=== PATIENT | female | born 1960 | race Caucasian/White ===

== ENCOUNTER 2018-12-10 11:44 | Emergency (ER) | payer BC ==
[2018-12-10] MEDS ORDERED: KETOROLAC TROMETHAMINE INJ 30 MG/ML VIAL IM ONE (11:56)
--- NOTE | 2018-12-10 12:46 | CT ---
EXAM DESCRIPTION: Head CLINICAL HISTORY: new headache rt frontal x24 hrs COMPARISON: None TECHNIQUE: Noncontrast transaxial CT images of the head are obtained from base to vertex. This exam was performed according to our departmental dose-optimization program, which includes automated exposure control, adjustment of the mA and/or kV according to patient size and/or use of iterative reconstruction technique. FINDINGS: A mixed cystic and solid mass in the right cerebral hemisphere may arise from the right lateral ventricle extending into the right posterior temporal to parietal region. The solid component is mildly increased attenuation compared to the brain parenchyma. The lesion measures approximately 4 cm AP by 3.5 cm transverse by 3.7 cm cranial caudal. No significant mass effect or surrounding vasogenic edema is appreciated. No ventricular dilatation. The visualized bone windows show no depressed skull fracture or significant abnormality. The visualized paranasal sinuses and mastoid air cells are clear. IMPRESSION: 1. Mass in the right cerebral hemisphere measures 4.0 x 3.7 x 3.5 cm involving the right lateral ventricle is partly cystic and solid. Differential includes primary neoplastic process of the brain such as glioblastoma extending into the right lateral ventricle versus primary lesion of the choroid plexus extending into the brain parenchyma. Recommend further evaluation with pre and postcontrast MRI for better characterization of this lesion. Electronically signed by: Kodi Aponte MD 12/10/2018 12:44 PM CDT
[2018-12-10 12:48] VITALS: TEMP 96.8
[2018-12-10] MEDS ORDERED: predniSONE 20 MG TAB PO ONE (13:02)
[2018-12-10] MEDS ORDERED: HYDROcodone 7.5MG/APAP 325MG 1 EA TAB PO ONE (13:02)
--- NOTE | 2018-12-10 13:05 | ED.PDOC ---
History of Present Illness - General Chief Complaint: Headache Stated Complaint: pressure to right side of head Time Seen by Provider: 12/10/18 11:47 Source: patient Exam Limitations: no limitations - History of Present Illness Initial Comments: the patient is a 58-year-old female presenting to the emergency room secondary to a headache a little more on the right side than the left that started yesterday afternoon when she was walking around [facility]. The patient felt a little bit dizzy. She feels like there is increased pressure in her head. No blood thinners. No history of any cancers. No focal neurological changes. No vision changes. No syncope. No chest pain or shortness of breath. No incontinence. No gait instability. No confusion. No new neck pain. She does have chronic neck issues. Timing/Duration: 24 hours Severity: mild Improving Factors: nothing Worsening Factors: nothing Associated Symptoms: headaches Allergies/Adverse Reactions: Allergies NO KNOWN ALLERGY Allergy (Verified 12/10/18 11:52) Home Medications: Ambulatory Orders Tramadol HCl 50 mg PO Q8HR PRN #20 tab 12/10/18 predniSONE [Prednisone] 20 mg PO DAILY #3 tab 12/10/18 Review of Systems - Review of Systems Constitutional: States: malaise EENTM: States: no symptoms reported Respiratory: States: no symptoms reported Cardiology: States: no symptoms reported Gastrointestinal/Abdominal: States: no symptoms reported Genitourinary: States: no symptoms reported Musculoskeletal: States: no symptoms reported Skin: States: no symptoms reported Neurological: States: see HPI Endocrine: States: no symptoms reported All other Systems: No Change from Baseline Past Medical History (General) - Patient Medical History Hx Stroke: No Hx Asthma: No Hx of COPD: No Hx Cardiac Disorders: No Hx Thyroid Disease: No Hx Diabetes: No Hx Gastroesophageal Reflux: No Hx Renal Disease: No Surgical History: Hysterectomy, other - Vaccination History Hx Tetanus, Diphtheria Vaccination: No Hx Influenza Vaccination: No Hx Pneumococcal Vaccination: No Family Medical History - Family History Mother Family History: Unknown Physical Exam - Physical Exam General Appearance: Alert, Comfortable, No apparent distress Eye Exam: bilateral normal Ears, Nose, Throat: hearing grossly normal, normal ENT inspection Neck: full range of motion Respiratory: lungs clear, normal breath sounds, no respiratory distress, no accessory muscle use Cardiovascular/Chest: normal peripheral pulses, regular rate, rhythm, no edema Peripheral Pulses: radial,right: 2+, radial,left: 2+, dorsalis pedis,right: 2+, dorsalis pedis,left: 2+ Gastrointestinal/Abdominal: non tender, soft Rectal Exam: deferred Back Exam: no CVA tenderness, no vertebral tenderness Extremity: non-tender, normal inspection, no pedal edema, normal capillary refill 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 Head CT was performed as this is a fairly new symptom for her. CT was done without contrast showing an approximately 4 cm mass extending off of the right lateral ventricular wall. It is partly cystic and partially solid and structure. Further evaluation is recommended. No evidence of any hydrocephalus, mass effect or adjacent significant edema. No evidence of overt hemorrhage. The patient will be sent with the disc of the images and report. The patient is from [place] and is going to go back there to have this worked up as soon as possible. Obviously if she develops any new neurological changes then she needs to be seen at whatever facility is closest. It is uncertain at this time exactly what this structure is and therefore how long it has been there, it is not possible at this time to tell how fast it is growing, if it is growing at all. The patient is going to be placed on 3 days of low-dose oral prednisone. Obviously as soon as possible an additional workup, including an mri, needs to be performed and the patient needs to be set up with an oncologist and probably neurosurgery to define what this structure is and complete the workup in order to develop a plan of care longer term. ER warnings are given for any acute worsening. The patient will be discharged with tramadol for as needed use. The patient has deferred other workup/referrals here at this time, in favor of returning home to have the workup completed there. des knapp [id number] 12/10/18 13:16 - Results/Orders Results/Orders: CT scan of the brain without contrast shows a mass in the right cerebral hemisphere that is 4 cm x 3.7 cm x 3.5 cm extending into the right lateral ventricle and then posteriorly into the temporal and parietal area. It is partly cystic and partly solid in structure. Differential includes a primary neoplastic process of the brain versus a lesion of the choroid plexus. Further evaluation is recommended as with an MRI. No mass effect or edema is seen. No ventricular dilation. No evidence of any herniation. Departure - Departure Clinical Impression: Mass, brain Headache Qualifiers: Headache type: unspecified Headache chronicity pattern: acute headache Intractability: not intractable Qualified Code(s): R51 - Headache Disposition: Discharge to Home or Self Care Condition: Fair Departure Forms: ED Discharge - Pt. Copy, Patient Portal Self Enrollment Diet: regular diet Activity: increase activity as tolerated Prescriptions: Tramadol HCl 50 mg PO Q8HR PRN #20 tab PRN Reason: Moderate Pain predniSONE [Prednisone] 20 mg PO DAILY #3 tab Home Medications: Ambulatory Orders Tramadol HCl 50 mg PO Q8HR PRN #20 tab 12/10/18 predniSONE [Prednisone] 20 mg PO DAILY #3 tab 12/10/18 Additional Instructions: the patient is a 58-year-old female presenting to emergency room with a headache but no other focal neurological changes. Head CT was performed as this is a fairly new symptom for her. CT was done without contrast showing an approximately 4 cm mass extending off of the right lateral ventricular wall. It is partly cystic and partially solid and structure. Further evaluation is recommended. No evidence of any hydrocephalus, mass effect or adjacent significant edema. No evidence of overt hemorrhage. The patient will be sent with the disc of the images and report. The patient is from [place] and is going to go back there to have this worked up as soon as possible. Obviously if she develops any new neurological changes then she needs to be seen at whatever facility is closest. It is uncertain at this time exactly what this structure is and therefore how long it has been there, it is not possible at this time to tell how fast it is growing, if it is growing at all. The patient is going to be placed on 3 days of low-dose oral prednisone. Obviously as soon as possible an additional workup, including an mri, needs to be performed and the patient needs to be set up with an oncologist and probably neurosurgery to define what this structure is and complete the workup in order to develop a plan of care longer term. ER warnings are given for any acute worsening. The patient will be discharged with tramadol for as needed use. The patient has deferred other workup/referrals here at this time, in favor of returning home to have the workup completed there.
[2018-12-10] MEDS ORDERED: HYDROCOD/APAP 7.5/325 (ER DISP) #3 TAB PO ONE (13:20)
[2018-12-10 13:37] VITALS: BP 126/74; O2SAT 99
== END 2018-12-10 13:32 | disposition home or self-care (01) ==
LOC: ER 11:44
DX: R51 Headache (principal); R22.0 Localized swelling, mass and lump, head
CPT/HCPCS: 70450; J1885; J7512